=== PATIENT | male | born 1940 | race Caucasian/White ===

== ENCOUNTER → 2021-04-28 | Outpatient (REF) | payer OTHER ==
[2021-04-28 16:44] LABS: APPEARANCE, URINE CLEAR (CLEAR); BACTERIA, URINE AUTO NEGATIVE (NEGATIVE); BILIRUBIN, URINE AUTO NEGATIVE (NEGATIVE); BLOOD, URINE BLOOD NEGATIVE (NEGATIVE); COLOR, URINE AMBER (YELLOW); GLUCOSE, URINE (UA) AUTO NEGATIVE (NEGATIVE); KETONE, URINE AUTO NEGATIVE (NEGATIVE); LEUKOCYTE ESTERASE, URINE AUTO NEGATIVE (NEGATIVE); MUCUS, URINE SMALL (NEGATIVE); NITRITE, URINE AUTO NEGATIVE (NEGATIVE); PROTEIN, URINE AUTO NEGATIVE (NEGATIVE); RBC, URINE AUTO 0 /HPF (0-3); SPECIFIC GRAVITY URINE AUTO 1.019 (1.002-1.035); SQUAMOUS EPITHELIAL CELL UR AU 0 /HPF (0-6); WBC, URINE AUTO 1 /HPF (0-3)
[2021-04-28 16:55] LABS: BASO # 0.1 10^3/uL (0.0-0.2); BASO % 0.9 % (0.0-1.0); EOS # 0.1 10^3/uL (0.0-0.5); EOS % 1.7 % (0.0-3.0); HEMATOCRIT 38.9 % (42.0-52.0); HEMOGLOBIN 11.9 g/dl (13.5-17.5); LYMPH # 1.3 10^3/uL (1.5-5.0); LYMPH % 17.2 % (24.0-44.0); MEAN CORPUSCULAR HEMOGLOBIN 25.8 pg (27.0-33.0); MEAN CORPUSCULAR HGB CONC 30.6 g/dl (32.0-36.5); MEAN CORPUSCULAR VOLUME 84.2 fl (80.0-96.0); MONO # 0.7 10^3/uL (0.0-0.8); MONO % 9.5 % (2.0-8.0); NEUTROPHILS # 5.2 10^3/uL (1.5-8.5); NEUTROPHILS % 69.4 % (36.0-66.0); PLATELET COUNT, AUTOMATED 292 10^3/uL (150-450); RED BLOOD COUNT 4.62 10^6/uL (4.30-6.10); WHITE BLOOD COUNT 7.5 10^3/uL (4.0-10.0)
[2021-04-28 17:18] LABS: TOTAL PROTEIN,RANDOM URINE 41.9 MG/DL (0.0-12.0)
[2021-04-28 17:19] LABS: ALBUMIN 2.7 GM/DL (3.2-5.2); ALT/SGPT 17 U/L (12-78); BILIRUBIN,DIRECT 0.3 MG/DL (0.0-0.2); BILIRUBIN,TOTAL 0.7 MG/DL (0.2-1.0); BLOOD UREA NITROGEN 15 MG/DL (7-18); C REACTIVE PROTEIN QUANTITATIV 9.91 MG/DL (0.00-0.30); CALCIUM LEVEL 8.8 MG/DL (8.8-10.2); CARBON DIOXIDE LEVEL 27 MEQ/L (21-32); CHLORIDE LEVEL 106 MEQ/L (98-107); COMPLEMENT C3 128 MG/DL (90-180); COMPLEMENT C4 33 MG/DL (10-40); CPK CREATINE PHOSPHOKINASE 32 U/L (39-308); CREATININE FOR GFR 0.81 MG/DL (0.70-1.30); GLOMERULAR FILTRATION RATE > 60.0 (>42); GLUCOSE, FASTING 93 MG/DL (70-100); IRON (FE) 28 UG/DL (65-175); MAGNESIUM LEVEL 2.3 MG/DL (1.8-2.4); PHOSPHORUS LEVEL 3.2 MG/DL (2.5-4.9); POTASSIUM SERUM 4.7 MEQ/L (3.5-5.1); SODIUM LEVEL 139 MEQ/L (136-145); TOTAL PROTEIN 6.3 GM/DL (6.4-8.2)
[2021-04-28 17:22] LABS: TOTAL 25(OH) VITAMIN D 10.5 NG/ML (30.0-100.0); VITAMIN B12 LEVEL 298 PG/ML (247-911)
[2021-04-28 17:57] LABS: ERYTHROCYTE SEDIMENTATION RATE 43 mm/hr (0-20)
== END ==
LOC: M SFHCRHEU 14:46
PROVIDERS: ATTEND Internal Medicine
DX: M06.4 Inflammatory polyarthropathy (principal); M79.10 Myalgia, unspecified site

== ENCOUNTER → 2024-11-26 | Outpatient (REF) | payer MEDICARE ==
[2024-11-26 15:19] LABS: PERCENT SATURATION 35.8 % (19.7-50.0)
[2024-11-26 15:20] LABS: FERRITIN 445.2 NG/ML (10.5-307.3)
[2024-11-26 15:21] LABS: TOTAL 25(OH) VITAMIN D 23.1 NG/ML (20.0-100.0)
== END ==
LOC: M SFHCRHEU 10:52
PROVIDERS: ATTEND Internal Medicine
DX: E55.9 Vitamin D deficiency, unspecified (principal); E61.1 Iron deficiency

== ENCOUNTER → 2025-05-28 | Outpatient (REF) | payer MEDICARE ==
[2025-05-28 19:05] LABS: IRON (FE) 61.0 UG/DL (65-175)
[2025-05-28 19:06] LABS: PERCENT SATURATION 23.6 % (19.7-50.0)
== END ==
LOC: M SFHCRHEU 15:55
PROVIDERS: ATTEND Internal Medicine
DX: E61.1 Iron deficiency (principal)